=== PATIENT | male | born 1975 | race Asian ===

== ENCOUNTER 2023-06-11 07:40 | Outpatient (CLI) | payer BC, SELFPAY ==
--- NOTE | ~2023-06-11 | US_ITS ---
US abdomen limited INDICATION: Liver evaluation. PROCEDURE: Realtime right upper abdominal ultrasound. COMPARISON: No prior studies for comparison. FINDINGS: The pancreas is normal without focal mass or pancreatic ductal dilation. Liver echotexture is increased, consistent with fatty infiltration. There is focal fatty sparing near the gallbladder fossa. There is normal directional flow in the portal vein. The gallbladder is normal without stones, gallbladder wall thickening or pericholecystic fluid. Comm on bile duct measures 5 mm. No sonographic Bui's sign. IMPRESSION: 1: Hepatic steatosis. Reviewed, dictated and finalized at location B. IMPRESSION: 1: Hepatic steatosis.
== END 2023-06-11 07:41 | disposition home or self-care (01) ==
PROVIDERS: PCP Family Medicine; Visit Provider Family Medicine
DX: K76.0 Fatty (change of) liver, not elsewhere classified (principal)
CPT/HCPCS: 76705

== ENCOUNTER 2023-08-27 01:56 | Day surgery (SDC) | payer BC, SELFPAY ==
[2023-08-07 15:07] VITALS: BMI 20.3
[2023-08-27 11:19] VITALS: BP 128/93; PULSE 74; RESP 18; TEMP 36.2; O2SAT 100
[2023-08-27] MEDS: LACTATED RINGERS 1,000 ML 150 ML IV CONT (11:40)
--- NOTE | 2023-08-27 11:43 | P.PNAN_ITS ---
Anes - Initial Pre Proc Eval Procedure: Operation Date: 08/27/23 12:30 Proposed Procedures p Screening Colonoscopy - Miguel De Paz MD Date/Time: 08/27/23 11:43 Surgeon: Miguel De Paz MD Pre Op Diagnosis: neoplasm screening Patient Data Age: 47 Gender: M Height: 1.83 m Weight: 70.4 kg Last Vital Signs Temp 97.1 F L 08/27/23 11:19 Pulse 74 08/27/23 11:19 Resp 18 08/27/23 11:19 BP 128/93 H 08/27/23 11:19 Pulse Ox 100 08/27/23 11:19 O2 Del Method Room Air 08/27/23 11:19 Allergies Allergy/AdvReac Type Severity Reaction Status Date / Time No Known Allergies Allergy Verified 08/27/23 11:18 Home Medications Medication Instructions Recorded Confirmed Type amlodipine 5 mg-benazepril 10 mg 1 cap PO DAILY #90 caps 05/22/23 08/07/23 Rx capsule (Lotrel) rosuvastatin 5 mg tablet 5 mg PO QPM #90 tabs 05/22/23 08/07/23 Rx allopurinol 100 mg tablet 100 mg PO DAILY #90 tabs 05/29/23 08/07/23 Rx Patient hx anesthesia problems: none Family hx anesthesia problems: none Results Review: All pre-operative results and documents have been reviewed as part of the pre- operative evaluation. [facility] Past Medical History Medical History (Updated 05/22/23 @ 12:41 by Melina Price MD) Benign hypertension Dyslipidemia Fatty liver Fatty liver disease, nonalcoholic Family History Family History (Updated 05/22/23 @ 12:36 by Melina Pirce MD) Father Liver cancer Heart disease Gout Social History Social History (Updated 05/22/23 @ 10:05 by Yesi Busch) Social History: Smoking status: Never smoker Second hand tobacco smoke exposure: No Alcohol intake: never Substance use: never Substance use type: does not use Lack of Transportation: No Lack of Food: Never True Current Housing: I Have Housing Concerned About Future Housing: No Difficulty Paying Gas/Electric Bills: No Difficulty Paying for Meds: No Currently Unemployed: No Education: Decline to Answer Difficulty w/ Childcare or Family Care: No Living arrangements: with family Occupation/Education: occupation Gender identity (if verbalized by the patient): Male Sexual Orientation (if Verbalized by the Patient): Straight or Heterosexual Spiritual care concerns: No Anes - Eval Final PreProcedure Day of Procedure 08/27/23 11:43 Patient weight: normal Heart: regular rate and rhythm Lungs: clear to auscultation Airway: Mallampati scale class II Neurological: alert and oriented Last oral intake: >/= 8 hours ASA classification: II Emergent: no Anesthetic plan: proceed Anesthesia type and monitoring: general GIVS and standard monitoring Results Review: All pre-operative results and documents have been reviewed as part of the pre- operative evaluation. Informed Consent: The patient's anesthetic plan and its attendant risks and benefits were discussed with the patient/family/POA. Questions were solicited and answers provided to the satisfaction of the patient/family/POA.
--- NOTE | 2023-08-27 11:55 | PM.HPGS ---
History of Present Illness History of Present Illness Consent: Risks, benefits, and alternatives have been discussed and questions answered. Patient agrees to proceed with procedure. Chief complaint: neoplasm screening Narrative: Kezia Max is a 47 year old male here for first screening colonoscopy Review of Systems Constitutional: Constitutional: Denies headache(s) and Denies weakness Eyes: Eyes: Denies blurry vision ENT: Reports Normal hearing present, Denies headache(s) and Denies neck pain Cardiovascular: Cardiovascular: Denies chest pain and Denies dyspnea Respiratory: Respiratory: Denies dyspnea Gastrointestinal: Gastrointestinal: Reports no additional gastrointestinal complaints Genitourinary: Genitourinary: Denies dysuria Musculoskeletal: Musculoskeletal: Denies neck pain Integumentary/Breasts: Skin/Breast: Denies dry skin Neurologic: Reports Normal hearing present, Denies headache(s) and Denies weakness Psychiatric: Psychiatric: Denies anxiety Endocrine: Endocrine: Denies change in body appearance Hematologic/Lymphatic: Hematologic/Lymphatic: Denies easy bleeding Allergic/Immunologic: Allergic/Immunologic: Denies urticaria PMF Past Medical History Medical History (Updated 05/22/23 @ 12:41 by Melina Price MD) Benign hypertension Dyslipidemia Fatty liver Fatty liver disease, nonalcoholic Family History Family History (Updated 05/22/23 @ 12:36 by Melina Price MD) Father Liver cancer Heart disease Gout Social History Social History (Updated 05/22/23 @ 10:05 by Yesi Busch) Social History: Smoking status: Never smoker Second hand tobacco smoke exposure: No Alcohol intake: never Substance use: never Substance use type: does not use Lack of Transportation: No Lack of Food: Never True Current Housing: I Have Housing Concerned About Future Housing: No Difficulty Paying Gas/Electric Bills: No Difficulty Paying for Meds: No Currently Unemployed: No Education: Decline to Answer Difficulty w/ Childcare or Family Care: No Living arrangements: with family Occupation/Education: occupation Gender identity (if verbalized by the patient): Male Sexual Orientation (if Verbalized by the Patient): Straight or Heterosexual Spiritual care concerns: No Meds Home Medications and Allergies Home Medications Medication Instructions Recorded Confirmed Type amlodipine 5 mg-benazepril 10 mg 1 cap PO DAILY #90 caps 05/22/23 08/07/23 Rx capsule (Lotrel) rosuvastatin 5 mg tablet 5 mg PO QPM #90 tabs 05/22/23 08/07/23 Rx allopurinol 100 mg tablet 100 mg PO DAILY #90 tabs 05/29/23 08/07/23 Rx Allergies Allergy/AdvReac Type Severity Reaction Status Date / Time No Known Allergies Allergy Verified 08/27/23 11:18 Vital Signs Vital Signs - 24 hr 08/27/23 11:19 Temperature 97.1 F L Pulse Rate 74 Respiratory Rate 18 Blood Pressure 128/93 H Pulse Oximetry 100 Oxygen Delivery Room Air Exam Const: General: comfortable and no acute distress HENMT: Face/Nose/Sinus: Normal nares present Eyes: General: appearance normal, both eyes and all related structures Neck: Neck: no JVD Resp: Auscultation: clear to auscultation bilaterally Cardio: Rate: regular rate Rhythm: regular rhythm GI: Inspection: non-distended GI Palp: Yes Soft to palpation Skin: General skin exam: normal color Neuro: General: gait normal Speech: normal speech Extrem: General: normal to inspection Psych: Mental Status: mental status grossly normal Assessment and Plan Assessment and plan (1) Colon cancer screening: Code(s): Z12.11 - Encounter for screening for malignant neoplasm of colon Status: Acute Assessment and Plan: colonoscopy
[2023-08-27 12:12] VITALS: BP 99/71; PULSE 76; RESP 15; O2SAT 97
[2023-08-27 12:22] VITALS: BP 101/69; PULSE 73; RESP 15; O2SAT 97
[2023-08-27 12:32] VITALS: BP 106/75; PULSE 67; RESP 16; O2SAT 97
[2023-08-27 12:42] VITALS: BP 107/81; PULSE 66; RESP 16; O2SAT 97
== END 2023-08-27 12:48 | disposition home or self-care (01) ==
PROVIDERS: PCP Family Medicine; Visit Provider Internal Medicine Gastroenterology
PROC: 0DJD8ZZ Inspection of Lower Intestinal Tract, Via Natural or Artificial Opening Endoscopic (ICD-10-PCS; CPT 45378; principal; 2023-08-27 12:30)
DX: Z12.11 Encounter for screening for malignant neoplasm of colon (principal); I10 Essential (primary) hypertension; E78.5 Hyperlipidemia, unspecified; Z79.899 Other long term (current) drug therapy
CPT/HCPCS: 45378; J2001; J2704; J7120